=== PATIENT | female | born 1940 | race Caucasian/White ===

== ENCOUNTER 2019-05-03 11:08 | Outpatient (CLI) | payer MEDICARE, OTHER | END 2019-05-03 23:59 | disposition home or self-care (01) | LOC: 64 CT 11:08 | PROVIDERS: ATTEND Family Medicine | DX: K80.80 Other cholelithiasis without obstruction (principal); K35.80 Unspecified acute appendicitis; K57.30 Diverticulosis of large intestine without perforation or abscess without bleeding; D71 Functional disorders of polymorphonuclear neutrophils; M43.16 Spondylolisthesis, lumbar region | CPT/HCPCS: 74176 ==

== ENCOUNTER 2019-06-30 14:25 | Inpatient (IN) | payer MEDICARE, OTHER ==
[~2019-06-30] VITALS: Ht 162.6 cm; Wt 47.7 kg
[2019-06-30 15:13] LABS: CLARITY,URINE CLOUDY (Clear); COLOR,URINE YELLOW (Yellow); GLUCOSE, URINE NEGATIVE (Neg); KETONES,URINE NEGATIVE (Neg); LEUKOCYTE ESTERASE ,URINE SMALL (Neg); NITRITES, URINE NEGATIVE (Neg); OCCULT BLOOD,URINE NEGATIVE (Neg); PH,URINE 5.5 (4.8-8.0); PROTEIN,URINE NEGATIVE (Neg); UROBILINOGEN,URINE 0.2 E.U/dL (0.2-1.0)
[2019-06-30 15:16] LABS: UA COLLECTION TYPE CLN CATCH MIDSTREAM
[2019-06-30 15:20] LABS: BASOPHILS % (AUTO) 0.7 % (0-1); EOSINOPHILS # (AUTO) 0.1 X10'3 (0-0.9); HEMATOCRIT 32.1 % (35.0-45.0); HEMOGLOBIN 10.7 g/dl (12.0-16.0); LYMPHOCYTES # (AUTO) 2.5 X10'3 (1.1-4.8); LYMPHOCYTES % (AUTO) 35.3 % (21-51); MEAN CORPUSCULAR HEMOGLOBIN 31.6 PG (27.0-31.0); MEAN CORPUSCULAR HGB CONC 33.4 g/dL (33.0-36.5); MEAN CORPUSCULAR VOLUME 94.7 FL (78-98); MONOCYTES # (AUTO) 0.6 X10'3 (0-0.9); MONOCYTES % (AUTO) 8.7 % (2-12); NEUTROPHILS # (AUTO) 3.8 X10'3 (1.8-7.7); NEUTROPHILS % (AUTO) 54.3 % (42-75); PLATELET COUNT 276 X10'3 (140-440); RED BLOOD COUNT 3.39 X10'6 (4.20-5.60); RED CELL DISTRIBUTION WIDTH 13.5 % (11.5-14.5)
[2019-06-30 15:23] LABS: MUCUS STRANDS MODERATE /LPF (Neg); RBC,URINE 0-2 /HPF (0-2); SQUAMOUS EPITHELIAL CELL,UR MODERATE /LPF (FEW)
[2019-06-30 15:24] LABS: ALANINE AMINOTRANSFERASE 16 U/L (12-78); ALBUMIN 3.7 G/DL (3.4-5.0); ALBUMIN/GLOBULIN RATIO 1.2 (1.1-1.5); ALKALINE PHOSPHATASE 37 IU/L (46-116); ANION GAP 10 (8-16); ASPARTATE AMINO TRANSFERASE 23 U/L (10-37); BILIRUBIN,TOTAL 0.8 MG/DL (0.1-1.0); BLOOD UREA NITROGEN 56 MG/DL (7-18); BUN/CREATININE RATIO 45.9 (6.6-38.0); CALCIUM 8.9 MG/DL (8.5-10.1); CHLORIDE 104 MMOL/L (99-107); CREATININE 1.22 MG/DL (0.40-0.90); GLUCOSE 112 MG/DL (70-104); LIPASE 112 U/L (73-393); POTASSIUM 3.8 MMOL/L (3.5-5.1); SODIUM 141 MMOL/L (135-145); TOTAL CARBON DIOXIDE 26.6 MMOL/L (24-32); TOTAL PROTEIN 6.9 G/DL (6.4-8.2); eGFR 43 ML/MIN
[2019-06-30 15:24] LABS: BACTERIA,URINE 1+ /HPF (Neg)
[2019-06-30] MEDS ORDERED: normal saline 1000ML IV soln IVB ONE ×2 (16:55→17:20)
[2019-06-30] MEDS ORDERED: pantoprazole 40 MG vial IV ONE (16:55)
[2019-06-30] MEDS ORDERED: magnesium 4gm in 100ml NS 100 ML IV PRN (17:55)
[2019-06-30] MEDS ORDERED: magnesium Cl slow-release 64mg tablet PO PRN (17:55)
[2019-06-30] MEDS ORDERED: potassium Cl 20 mEq SR tablet PO PRN ×2 (17:55)
[2019-06-30] MEDS ORDERED: mag hydrox/Alum hydrox/simeth 30ml oral suspension PO PRN (17:55)
[2019-06-30] MEDS ORDERED: magnesium 2GM in 50ml NS 50 ML IV PRN (17:55)
[2019-06-30] MEDS ORDERED: potassium CL 10mEq/100ml bag 100 ML IV PRN ×2 (17:55)
[2019-06-30] MEDS ORDERED: morphine 2 MG/ML inj. syringe IV PRN (17:55)
[2019-06-30] MEDS ORDERED: ondansetron/PF 4mg/2ml inj IV PRN (17:55)
[2019-06-30] MEDS ORDERED: BIOT25008 PO (17:59)
[2019-06-30] MEDS ORDERED: MULT400C3 PO (17:59)
[2019-06-30] MEDS ORDERED: CALC-853 PO (17:59)
[2019-06-30] MEDS: normal saline 1000ml 1,000 ML IV SCH (18:33)
[2019-06-30 19:20] VITALS: BP 165/62
[2019-06-30] MEDS: K and/or MAG REPLACEMENT MC SCH (20:00)
[2019-06-30 20:43] LABS: BASOPHILS % (AUTO) 0.8 % (0-1); EOSINOPHILS # (AUTO) 0.1 X10'3 (0-0.9); EOSINOPHILS % (AUTO) 1.8 % (0-6); HEMOGLOBIN 8.5 g/dl (12.0-16.0); LYMPHOCYTES # (AUTO) 1.6 X10'3 (1.1-4.8); LYMPHOCYTES % (AUTO) 34.1 % (21-51); MEAN CORPUSCULAR HEMOGLOBIN 32.1 PG (27.0-31.0); MEAN CORPUSCULAR HGB CONC 33.9 g/dL (33.0-36.5); MEAN CORPUSCULAR VOLUME 94.8 FL (78-98); MEAN PLATELET VOLUME 7.9 FL (7.4-10.4); MONOCYTES # (AUTO) 0.4 X10'3 (0-0.9); MONOCYTES % (AUTO) 9.3 % (2-12); NEUTROPHILS # (AUTO) 2.6 X10'3 (1.8-7.7); PLATELET COUNT 208 X10'3 (140-440); RED BLOOD COUNT 2.64 X10'6 (4.20-5.60); RED CELL DISTRIBUTION WIDTH 13.3 % (11.5-14.5); WHITE BLOOD COUNT 4.8 X10'3 (4.5-11.0)
[2019-06-30] MEDS: pantoprazole 40MG/NS 100ML BAG 100 ML IV SCH (21:19)
[2019-06-30 22:00] VITALS: BP 140/68
[2019-07-01] VITALS (9 sets, daily range): BP systolic 105–153; BP diastolic 41–85
[2019-07-01] MEDS: pantoprazole 40MG/NS 100ML BAG 100 ML IV SCH ×5 (01:28→19:28)
[2019-07-01] MEDS: normal saline 1000ml 1,000 ML IV SCH ×2 (04:01→14:22)
[2019-07-01 05:33] LABS: BASOPHILS % (AUTO) 1.3 % (0-1); EOSINOPHILS # (AUTO) 0.1 X10'3 (0-0.9); EOSINOPHILS % (AUTO) 4.1 % (0-6); HEMATOCRIT 22.6 % (35.0-45.0); HEMOGLOBIN 7.7 g/dl (12.0-16.0); LYMPHOCYTES # (AUTO) 1.1 X10'3 (1.1-4.8); LYMPHOCYTES % (AUTO) 32.4 % (21-51); MEAN CORPUSCULAR HEMOGLOBIN 32.3 PG (27.0-31.0); MEAN CORPUSCULAR VOLUME 94.8 FL (78-98); MEAN PLATELET VOLUME 8.1 FL (7.4-10.4); MONOCYTES # (AUTO) 0.3 X10'3 (0-0.9); MONOCYTES % (AUTO) 9.9 % (2-12); NEUTROPHILS # (AUTO) 1.8 X10'3 (1.8-7.7); NEUTROPHILS % (AUTO) 52.3 % (42-75); PLATELET COUNT 190 X10'3 (140-440); RED BLOOD COUNT 2.38 X10'6 (4.20-5.60); RED CELL DISTRIBUTION WIDTH 13.5 % (11.5-14.5); WHITE BLOOD COUNT 3.5 X10'3 (4.5-11.0)
[2019-07-01 05:43] LABS: ALBUMIN 2.7 G/DL (3.4-5.0); ANION GAP 6 (8-16); BLOOD UREA NITROGEN 38 MG/DL (7-18); BUN/CREATININE RATIO 45.8 (6.6-38.0); CHLORIDE 113 MMOL/L (99-107); CREATININE 0.83 MG/DL (0.40-0.90); GLUCOSE 90 MG/DL (70-104); MAGNESIUM 1.6 MG/DL (1.5-2.4); POTASSIUM 3.8 MMOL/L (3.5-5.1); SODIUM 144 MMOL/L (135-145); TOTAL CARBON DIOXIDE 24.7 MMOL/L (24-32); eGFR 66 ML/MIN
--- NOTE | 2019-07-01 06:00 | NUR ---
Patient in room PCU 3019. I have received report from Cielo TAVAREZ and had the opportunity to ask questions and assume patient care.
--- NOTE | 2019-07-01 06:19 | NUR ---
Problems reprioritized. Patient report given, questions answered & plan of care reviewed with DAYSI CHRISTIAN.
[2019-07-01] MEDS: K and/or MAG REPLACEMENT MC SCH ×2 (07:03→20:00)
--- NOTE | 2019-07-01 15:11 | NUR ---
Malnutrition consult: Attempted visit with pt at bedside however pt unavailable. Pt reports 2-13 lb wt loss with decreased appetite per malnutrition risk screen with RN. Current BMI is low with documented chair scaled wt of 47.7 kg, however no wt hx in EMR. Pt admit with GIB, currently NPO. Pt with no documented edema or decrease in muscle strength. Unable to fully assess for malnutrition at this time given lack of information. Will f/u at another time. Addendum: 07/01/19 at [address] Amended: Links added.
[2019-07-01] MEDS ORDERED: LIDOcaine Viscous 15ml cup ONE (15:18)
[2019-07-01] MEDS ORDERED: MIDAZolam 5mg/5ml vial ONE (15:18)
[2019-07-01] MEDS ORDERED: fentaNYL/PF 50MCG/1 ML 2ML syringe ONE (15:18)
--- NOTE | 2019-07-01 16:50 | NUR ---
PAGER ID: [phone] MESSAGE: [id number] Carlos Reynoso Needs new diet order per Dr. Jaimes. Pls. Advise. Lisa [id number]
--- NOTE | 2019-07-01 18:30 | NUR ---
Patient in room PCU 3019. I have received report from DAYSI Gonzalez and had the opportunity to ask questions and assume patient care.
--- NOTE | 2019-07-01 18:51 | NUR ---
Problems reprioritized. Patient report given, questions answered & plan of care reviewed with Irena TAVAREZ.
[2019-07-02] MEDS: pantoprazole 40MG/NS 100ML BAG 100 ML IV SCH ×5 (00:01→21:14)
[2019-07-02] MEDS: normal saline 1000ml 1,000 ML IV SCH ×3 (00:02→20:13)
[2019-07-02 02:00] VITALS: BP 118/50
[2019-07-02 05:17] LABS: BASOPHILS % (AUTO) 1.3 % (0-1); EOSINOPHILS # (AUTO) 0.1 X10'3 (0-0.9); EOSINOPHILS % (AUTO) 4.1 % (0-6); HEMOGLOBIN 7.3 g/dl (12.0-16.0); LYMPHOCYTES # (AUTO) 1.2 X10'3 (1.1-4.8); LYMPHOCYTES % (AUTO) 32.3 % (21-51); MEAN CORPUSCULAR HEMOGLOBIN 32.1 PG (27.0-31.0); MEAN CORPUSCULAR HGB CONC 33.8 g/dL (33.0-36.5); MEAN CORPUSCULAR VOLUME 94.9 FL (78-98); MEAN PLATELET VOLUME 7.9 FL (7.4-10.4); MONOCYTES # (AUTO) 0.3 X10'3 (0-0.9); MONOCYTES % (AUTO) 8.3 % (2-12); PLATELET COUNT 186 X10'3 (140-440); RED BLOOD COUNT 2.28 X10'6 (4.20-5.60); RED CELL DISTRIBUTION WIDTH 13.4 % (11.5-14.5); WHITE BLOOD COUNT 3.7 X10'3 (4.5-11.0)
[2019-07-02 05:25] LABS: HEMATOCRIT 21.6 % (35.0-45.0)
[2019-07-02 05:29] LABS: ALBUMIN 2.7 G/DL (3.4-5.0); ANION GAP 10 (8-16); BLOOD UREA NITROGEN 16 MG/DL (7-18); BUN/CREATININE RATIO 21.6 (6.6-38.0); CHLORIDE 112 MMOL/L (99-107); CREATININE 0.74 MG/DL (0.40-0.90); GLUCOSE 82 MG/DL (70-104); MAGNESIUM 1.5 MG/DL (1.5-2.4); POTASSIUM 3.7 MMOL/L (3.5-5.1); SODIUM 143 MMOL/L (135-145); TOTAL CARBON DIOXIDE 20.7 MMOL/L (24-32); eGFR 76 ML/MIN
--- NOTE | 2019-07-02 05:29 | NUR ---
MD notified for Hgb 7.3 and Hct 21.6 and yesterday's was Hbg 7.6 and Hct 22.6. No new orders at this time. Will pass on to day shift hand off report nurse.
[2019-07-02 06:30] VITALS: BP 139/47
--- NOTE | 2019-07-02 06:33 | NUR ---
Problems reprioritized. Patient report given, questions answered & plan of care reviewed with DAYSI Moralez.
--- NOTE | 2019-07-02 06:35 | NUR ---
Patient in room PCU 3019. I have received report from DAYSI Coronado and had the opportunity to ask questions and assume patient care.
[2019-07-02] MEDS: K and/or MAG REPLACEMENT MC SCH ×2 (06:56→20:00)
[2019-07-02 11:00] VITALS: BP 110/49
--- NOTE | 2019-07-02 12:04 | NUR ---
F/u for malnutrition consult: Pt seen at bedside reports UBW 115-120 lbs and states she weighed about 117 lbs at a doctors appointment in January. Pt currently with a chair scaled wt of 105 lbs although pt denies being weighed during admission and states she weighed 103 lb at her house just [employer]. If pt truly lost reported wt, this would be severe wt loss of 10% in five months. Unfortunately, no scaled wt hx in EMR to determine accuracy of reported wt loss. Pt states she generally eats at least two meals a day and reports she continued with similar PO intake despite reported wt loss. Pt currently on a clear liquid diet documented with 100% PO intake and endorsing a good appetite requesting more food. Pt with no decrease in muscle strength, edema, or visible fat/muscle wasting. Pt currently lacks a minimum of two criteria for malnutrition. Pt states she had an allergy testing years ago and reports peanuts and soy came up as possible allergies, however she continues to consume these items without reactions. Pt denies difficulties chewing or swallowing. Pt provided with RD contact information. Will continue to follow. Addendum: 07/02/19 at [address] Amended: Links added.
[2019-07-02 15:00] VITALS: BP 107/89
--- NOTE | 2019-07-02 18:10 | NUR ---
Problems reprioritized. Patient report given, questions answered & plan of care reviewed with DAYSI Oscar.
[2019-07-02 19:00] VITALS: BP 119/50
[2019-07-02 22:00] VITALS: BP 106/47
[2019-07-03] MEDS: pantoprazole 40MG/NS 100ML BAG 100 ML IV SCH ×3 (01:00→09:30)
[2019-07-03 02:00] VITALS: BP 118/44
[2019-07-03] MEDS: normal saline 1000ml 1,000 ML IV SCH (05:52)
[2019-07-03 06:02] LABS: EOSINOPHILS # (AUTO) 0.2 X10'3 (0-0.9); EOSINOPHILS % (AUTO) 4.8 % (0-6); HEMOGLOBIN 7.2 g/dl (12.0-16.0); LYMPHOCYTES # (AUTO) 1.2 X10'3 (1.1-4.8); LYMPHOCYTES % (AUTO) 33.4 % (21-51); MEAN PLATELET VOLUME 8.2 FL (7.4-10.4); MONOCYTES # (AUTO) 0.3 X10'3 (0-0.9); MONOCYTES % (AUTO) 8.2 % (2-12); NEUTROPHILS # (AUTO) 1.9 X10'3 (1.8-7.7); NEUTROPHILS % (AUTO) 52.6 % (42-75); PLATELET COUNT 193 X10'3 (140-440); RED BLOOD COUNT 2.24 X10'6 (4.20-5.60); RED CELL DISTRIBUTION WIDTH 13.5 % (11.5-14.5); WHITE BLOOD COUNT 3.6 X10'3 (4.5-11.0)
--- NOTE | 2019-07-03 06:05 | NUR ---
Patient in room PCU 3019. I have received report from DAYSI Oscar and had the opportunity to ask questions and assume patient care.
[2019-07-03 06:10] LABS: HEMATOCRIT 21.1 % (35.0-45.0)
--- NOTE | 2019-07-03 06:15 | NUR ---
Problems reprioritized. Patient report given, questions answered & plan of care reviewed with Naomy Soto. Addendum: 07/03/19 at 0615 by Celestina Mcclelland RN Amended: Links added.
[2019-07-03 06:22] LABS: ALBUMIN 2.5 G/DL (3.4-5.0); ANION GAP 9 (8-16); BLOOD UREA NITROGEN 8 MG/DL (7-18); BUN/CREATININE RATIO 10.1 (6.6-38.0); CALCIUM 7.8 MG/DL (8.5-10.1); CHLORIDE 112 MMOL/L (99-107); CREATININE 0.79 MG/DL (0.40-0.90); GLUCOSE 97 MG/DL (70-104); MAGNESIUM 1.3 MG/DL (1.5-2.4); POTASSIUM 3.6 MMOL/L (3.5-5.1); SODIUM 142 MMOL/L (135-145); TOTAL CARBON DIOXIDE 21.4 MMOL/L (24-32); eGFR 70 ML/MIN
[2019-07-03 06:30] VITALS: BP 136/51
[2019-07-03] MEDS: K and/or MAG REPLACEMENT MC SCH (07:04)
[2019-07-03 11:00] VITALS: BP 110/68
[2019-07-03] MEDS ORDERED: FERR-29 PO (11:10)
[2019-07-03] MEDS ORDERED: PANT-47 PO (11:10)
--- NOTE | 2019-07-03 14:05 | NUR ---
DC inst provided to pt. IV DC'd, tip intact. All belongings sent w/pt. Pt ambulated to front lobby.
--- NOTE | 2019-07-06 11:34 | NUR ---
Case Management DC follow up: spoke to pt & pt Lucia in [place] via telephone: reports had not had a BM since 06/30/19, stated called PCP, recommended Mag Citrate. Noted pt did not try any other remedy to relieve constipation. Reports up all night from 8pm to 5am with black diarrhea. BLE edema, wt gain 113lbs this morning from aprox 103 lbs during admit. intermittent vertigo, orthostatic hypotension. Denies acute/persistent CP, emergent general pain, SOB, resp distress, NV, SAHU, general/concerning bruising, fever, diaphoreses, confusion. states abd swelling "not more than usual", no pain on self palpation. Verbalizes understanding of s/s that would warrant -/ER visit for further evaluation. agrees to call PCP & Dr Jaimes to report current symptoms. pt advised if unable to speak to , rtn to ER. Verbalizes understanding of current and/or new Rx; taking as ordered, no ase noted r/t polypharmacy. Acknowledges need to schedule/keep follow up appts w/PCP Elian 07/08/19. pt had labs done 07/05/19. Specialist(s) Dr Jaimes r/t previous EGD, colonoscopy aprox 06/24/19. All questions/concerns addressed and answered at DC; Verbalizes understanding of post status after-care compliance. No further questions at this time.
== END 2019-07-03 14:19 | disposition home or self-care (01) | DRG 378 ==
LOC: ER 14:26 → ED HOLD 17:51 → PCU 3S 19:18
PROVIDERS: ADMIT Internal Medicine; ATTEND Internal Medicine
PROC: 0DJ08ZZ Inspection of Upper Intestinal Tract, Via Natural or Artificial Opening Endoscopic (ICD-10-PCS; principal; 2019-07-01)
DX: K29.01 Acute gastritis with bleeding (principal); D62 Acute posthemorrhagic anemia; F17.200 Nicotine dependence, unspecified, uncomplicated; K44.9 Diaphragmatic hernia without obstruction or gangrene; K31.89 Other diseases of stomach and duodenum; Z88.1 Allergy status to other antibiotic agents; Y92.89 Other specified places as the place of occurrence of the external cause
CPT/HCPCS: 36415; 43235; 74022; 80048; 80053; 81001; 83690; 83735; 85025; 86885; 86900; 86901; 87081; 87088; 96361; 96374; 99152; 99285; A4620; C9113; G0378; J2250; J3010; J7030; J7040

== ENCOUNTER 2019-07-06 15:26 | Emergency (ER) | payer MEDICARE, OTHER ==
[~2019-07-06] VITALS: Ht 188 cm; Wt 52.3 kg
[~2019-07-06 15:26] MED LIST: BIOT25008 PO; CALC-853 PO; FERR-29 PO; MULT400C3 PO; PANT-47 PO
[2019-07-06 16:09] LABS: BASOPHILS # (AUTO) 0.1 X10'3 (0-0.2); EOSINOPHILS # (AUTO) 0.1 X10'3 (0-0.9); EOSINOPHILS % (AUTO) 2.3 % (0-6); HEMATOCRIT 24.4 % (35.0-45.0); HEMOGLOBIN 8.2 g/dl (12.0-16.0); LYMPHOCYTES # (AUTO) 1.6 X10'3 (1.1-4.8); LYMPHOCYTES % (AUTO) 26.5 % (21-51); MEAN CORPUSCULAR HEMOGLOBIN 32.2 PG (27.0-31.0); MEAN CORPUSCULAR HGB CONC 33.7 g/dL (33.0-36.5); MEAN CORPUSCULAR VOLUME 95.3 FL (78-98); MONOCYTES # (AUTO) 0.6 X10'3 (0-0.9); MONOCYTES % (AUTO) 9.7 % (2-12); NEUTROPHILS # (AUTO) 3.6 X10'3 (1.8-7.7); NEUTROPHILS % (AUTO) 60.5 % (42-75); PLATELET COUNT 348 X10'3 (140-440); RED BLOOD COUNT 2.56 X10'6 (4.20-5.60); RED CELL DISTRIBUTION WIDTH 13.9 % (11.5-14.5)
[2019-07-06 16:29] LABS: ALANINE AMINOTRANSFERASE 23 U/L (12-78); ALBUMIN 3.1 G/DL (3.4-5.0); ALBUMIN/GLOBULIN RATIO 1.1 (1.1-1.5); ALKALINE PHOSPHATASE 42 IU/L (46-116); ANION GAP 6 (8-16); ASPARTATE AMINO TRANSFERASE 22 U/L (10-37); BILIRUBIN,TOTAL 0.5 MG/DL (0.1-1.0); BLOOD UREA NITROGEN 8 MG/DL (7-18); CALCIUM 8.6 MG/DL (8.5-10.1); CHLORIDE 108 MMOL/L (99-107); GLUCOSE 102 MG/DL (70-104); POTASSIUM 3.3 MMOL/L (3.5-5.1); SODIUM 142 MMOL/L (135-145); TOTAL CARBON DIOXIDE 27.6 MMOL/L (24-32); eGFR 53 ML/MIN
[2019-07-06 16:41] LABS: PARTIAL THROMBOPLASTIN TIME 27 SECONDS (22-32)
[2019-07-06] MEDS ORDERED: normal saline 1000ML IV soln IVB ONE (16:45)
[2019-07-06] MEDS ORDERED: potassium Cl 20 mEq SR tablet PO STA (16:58)
--- NOTE | 2019-07-06 20:17 | NUR ---
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
[2019-07-06] MEDS ORDERED: POTA10TA19 PO (20:41)
[2019-07-06] MEDS ORDERED: FURO-150 PO (20:41)
[2019-07-06 21:13] VITALS: BP 158/72
== END 2019-07-06 21:15 | disposition home or self-care (01) ==
LOC: ER 15:27
DX: R42 Dizziness and giddiness (principal); I11.0 Hypertensive heart disease with heart failure; I50.9 Heart failure, unspecified; Z88.1 Allergy status to other antibiotic agents; Z79.899 Other long term (current) drug therapy
CPT/HCPCS: 36415; 71045; 80053; 83880; 85025; 85610; 85730; 86885; 86900; 86901; 93005; 93970; 96360; 99285; J7030

== ENCOUNTER → 2020-11-20 | Emergency (ER) | payer MEDICARE, OTHER ==
[~2020-11-20] VITALS: Ht 160 cm; Wt 45.5 kg
[~2020-11-20] MED LIST changes: +ACET-1025 PO; +CYCL-1 PO; +DEXA4TAB67 PO; +dexamethasone 4mg/ml inj IV SCH; +ketorolac tromethamine 15mg/ml inj. IV ONE; +orphenadrine citrate 60mg/2ml inj. IM ONE
[2020-11-20 19:01] VITALS: BP 133/65
== END | disposition home or self-care (01) ==
LOC: ER 10:34
DX: G89.29 Other chronic pain (principal); M54.2 Cervicalgia; M51.24 Other intervertebral disc displacement, thoracic region; M51.26 Other intervertebral disc displacement, lumbar region; Z90.49 Acquired absence of other specified parts of digestive tract; Z79.899 Other long term (current) drug therapy; Z88.1 Allergy status to other antibiotic agents
CPT/HCPCS: 72125; 72128; 72131; 96372; 96374; 96375; 99285; J1100; J1885; J2360